=== PATIENT | male | born 1975 | race American Indian/Alaskan Native ===

== ENCOUNTER 2020-12-29 01:08 | Emergency (ER) | payer BC ==
[~2020-12-29] VITALS: Ht 185.4 cm; Wt 81.0 kg
[2020-12-29 01:52] VITALS: BP 153/107
--- NOTE | 2020-12-29 01:52 | NUR ---
DR BEEBE AT BEDSIDE TO REPAIR LACS TO EYEBROWS. PT REFUSED THE CHEST XRAY AND DR. BEEBE OK WITH THAT. [employer] OFFICER REMAINS AT BEDSIDE.
== END 2020-12-29 02:45 ==
LOC: ER 01:09
DX: S01.111A Laceration without foreign body of right eyelid and periocular area, initial encounter (principal); S01.112A Laceration without foreign body of left eyelid and periocular area, initial encounter; Z72.89 Other problems related to lifestyle; X58.XXXA Exposure to other specified factors, initial encounter; Y93.89 Activity, other specified; Y92.89 Other specified places as the place of occurrence of the external cause; Y99.8 Other external cause status
CPT/HCPCS: 12013; 99284